=== PATIENT | female | born 1990 | race American Indian/Alaskan Native ===

== ENCOUNTER 2021-09-27 00:17 | Emergency (ER) | payer SELFPAY ==
[2021-09-27 00:47] VITALS: BP 114/76
--- NOTE | 2021-09-27 01:03 | Emergency Department Report ---
ED General Adult HPI - General Chief complaint: Psych Stated complaint: MH Time Seen by Provider: 09/27/21 00:58 Source: patient, EMS ( EMS documentation not available at time of chart dictation ), RN notes reviewed Mode of arrival: Stretcher Limitations: No Limitations - History of Present Illness Initial comments: The patient is a 31-year-old female. She is brought to the hospital by emergency medical services. The patient herself states that she has no physical pain. She does not think that she is present. She is a schizophrenic and reports that she takes trazodone. She further reports that she goes to [place] for her medical care. She denies physical pain. She denies homicidality, suicidality, hallucinations, overdose, access to guns or firearms. She reports that she previously worked at a [employer], is not working currently, and also reports that she is able to drive or operate motor vehicles. Patient reports that she has no medical concerns or psychiatric concerns today. The patient reports that she has no urinary symptoms or cough. Improves with: none Worsens with: none Associated Symptoms: denies other symptoms - Related Data Allergies Allergy/AdvReac Type Severity Reaction Status Date / Time No Known Allergies Allergy Unverified 09/27/21 00:47 ED Review of Systems ROS: Stated complaint: MH Other details as noted in HPI Comment: All other systems reviewed and negative Psychiatric: denies: depression, auditory hallucinations, visual hallucinations, homicidal thoughts, suicidal thoughts ED Past Medical Hx - Past Medical History Previous Medical History?: Yes Hx Psychiatric Treatment: Yes (Bipolar schizophrenic) - Surgical History Past Surgical History?: No ED Physical Exam - General Limitations: No Limitations General appearance: alert, in no apparent distress - Head Head exam: Present: atraumatic, normocephalic - Eye Eye exam: Present: normal appearance, EOMI. Absent: nystagmus - ENT ENT exam: Present: normal exam, normal orophraynx, mucous membranes moist, normal external ear exam - Neck Neck exam: Present: normal inspection, full ROM. Absent: tenderness, meningismus - Respiratory Respiratory exam: Present: normal lung sounds bilaterally. Absent: respiratory distress, wheezes, rales, rhonchi, stridor, decreased breath sounds - Cardiovascular Cardiovascular Exam: Present: regular rate, normal rhythm, normal heart sounds. Absent: bradycardia, tachycardia, irregular rhythm, systolic murmur, diastolic murmur, rubs, gallop - GI/Abdominal GI/Abdominal exam: Present: soft. Absent: distended, tenderness, guarding, rebound, rigid, pulsatile mass - Extremities Exam Extremities exam: Present: normal inspection, full ROM, other (2+ pulses noted in the bilateral upper and lower extremities. There is no palpable cord. negative Homans sign. Muscular compartments are soft. The pelvis is stable.). Absent: pedal edema, calf tenderness - Back Exam Back exam: Present: normal inspection, full ROM. Absent: tenderness, CVA tenderness (R), CVA tenderness (L), paraspinal tenderness, vertebral tenderness - Neurological Exam Neurological exam: Present: alert, oriented X3, normal gait, other (No facial droop. Tongue midline. Extraocular movements intact bilaterally. Facial sensation intact to light touch in V1, V2, V3 distribution bilaterally. 5 and a 5 strength in 4 extremities. Sensation intact to light touch in 4 extremities.). Absent: motor sensory deficit - Psychiatric Psychiatric exam: Present: flat affect. Absent: homicidal ideation, suicidal ideation - Skin Skin exam: Present: warm, dry, intact, normal color. Absent: rash ED Course Vital Signs 09/27/21 00:47 Temperature 97.6 F Pulse Rate 62 Respiratory 16 Rate Blood Pressure 114/76 [Right] O2 Sat by Pulse 98 Oximetry ED Medical Decision Making - Lab Data Vital Signs 09/27/21 00:47 Temperature 97.6 F Pulse Rate 62 Respiratory 16 Rate Blood Pressure 114/76 [Right] O2 Sat by Pulse 98 Oximetry - Medical Decision Making Differential diagnosis, including but limited to: Encounter for behavioral heal th screening, encounter for medical screening examination Assessment and plan: 31-year-old female, who is afebrile, with reassuring vital signs, who is clinically sober, with a GCS of 15, NIH score of 0, who has no acute medical complaints at this time. She is ambulatory with a steady gait. She is also awake, alert, oriented, sober, of sound mind, and does not meet criteria for 1013 hold or involuntary confinement. She reports that she has no request for medical care at this time. She may continue her current outpatient medications, and follow-up with her outpatient primary care doctor, or therapist. Return precautions are reviewed. Critical care attestation.: If time is entered above; I have spent that time in minutes in the direct care of this critically ill patient, excluding procedure time. ED Disposition Clinical Impression: Encounter for medical screening examination, Encounter for behavioral health screening Disposition: HOME / SELF CARE / HOMELESS Is pt being admited?: No Does the pt Need Aspirin: No Condition: Good Additional Instructions: Please continue current outpatient medications. Please avoid consumption of tobacco, alcohol and smoke products. Please follow-up with your outpatient primary care doctor or mental health specialist within the next week. Please return to the emergency room right away with new pain, worsened pain, migration of pain, projectile vomiting, change in mental status, confusion, inability tolerate liquid feeds, new, worsened or different symptoms not present on the initial emergency room evaluation Referrals: [facility] [Outside] - 3-5 Days [facility] [Outside] - 3-5 Days
== END 2021-09-27 01:36 | disposition home or self-care (01) ==
LOC: ED 00:17
DX: Z13.30 Encounter for screening examination for mental health and behavioral disorders, unspecified (principal); F31.9 Bipolar disorder, unspecified
CPT/HCPCS: 99283